=== PATIENT | male | born 2000 | race Two or more races ===

== ENCOUNTER 2021-01-29 17:31 | Emergency (ER) | payer OTHER ==
--- NOTE | 2021-01-29 17:42 | ED Physician Documentation ---
PD HPI MALE - Stated complaint Stated Complaint: MALE - Chief complaint Chief Complaint: General - History obtained from History obtained from: Patient - History of Present Illness Timing - onset: How many days ago Timing - details: Gradual onset, Still present (rectal discomfort. History of recent rectal intercourse with new partner, and is concerned about STI.) Associated symptoms: Other (rectal pain since yesterday). No: Dysuria, Urinary frequency PD HPI MALE CONTRIB FACTORS: Sexually active, Homosexual (he had receptive rectal intercourse yesterday with new partner. Concerned about potential STD exposure. Also having rectal area pain/tenderness.) Similar symptoms before: Has not had sx before Recently seen: Not recently seen Review of Systems Constitutional: denies: Fever, Chills Nose: denies: Rhinorrhea / runny nose, Congestion Throat: denies: Sore throat Respiratory: denies: Cough GI: reports: Other (rectal pain). denies: Abdominal Pain, Nausea, Vomiting : reports: Other (denies rectal bleeding.). denies: Dysuria, Frequency Musculoskeletal: denies: Back pain PD PAST MEDICAL HISTORY - Past Medical History GI: None : None - Present Medications Home Medications: Ambulatory Orders Medication Instructions Recorded Confirmed Doxycycline Monohydrate 150 mg PO BID #14 cap 01/29/21 - Allergies Allergies/Adverse Reactions: Allergies Allergy/AdvReac Type Severity Reaction Status Date / Time No Known Drug Allergies Allergy Verified 01/29/21 17:37 PD ED PE NORMAL - Vitals Vital signs reviewed: Yes - General General: Alert and oriented X 3, No acute distress, Well developed/nourished - Rectal Rectal: Other (there is superficial mucosal tear at anal verge at left side, no bleeding. No hemorrhoids. No noted purulence. ) - Derm Derm: Normal color, Warm and dry - Neuro Neuro: Alert and oriented X 3, No motor deficit, Normal speech Results - Vitals Vitals: Vital Signs - 24 hr 01/29/21 01/29/21 17:36 18:52 Temperature 36.6 C 37.0 C Heart Rate 89 72 Respiratory 16 18 Rate Blood Pressure 114/77 109/77 O2 Saturation 97 99 Oxygen O2 Source Room air PD MEDICAL DECISION MAKING - ED course Complexity details: considered differential (can treat for potential STI exposures. But with some local trauma to the rectal, also can cover for potential proctitis, so opted for Doxy rather than Zithromax, and would be c/w recent IDSA STI recommendations. ), d/w patient Departure - Departure Disposition: 01 Home, Self Care Clinical Impression: Concern about STD in male without diagnosis Record reviewed to determine appropriate education?: Yes Prescriptions: Doxycycline Monohydrate 150 mg PO BID #14 cap Comments: There is a small mucosal abrasion/superficial tear on the left perirectal area. Treat this with cleansing gently and some ointment couple of times a day. It should heal okay. Given the concern for potential STI exposure, you are treated for that with the injection of antibiotic you got here along with the doxycycline twice a day for a week. This should also cover potential proctitis which would be just or rectal infection that develops from the intrinsic germs in the area. Consider a stool softener such as docusate so that you have easy bowel movements over the next several days. Tylenol or ibuprofen as needed for pains. Recheck if not improved completely over the next several days. Consider also following up with primary care or such in about 3 to 4 weeks for recheck testing to ensure no signs of infection have shown at that time. Discharge Date/Time: 01/29/21 19:14
[2021-01-29] MEDS ORDERED: cefTRIAXone 500 MG VIAL IM STA (18:17)
[2021-01-29] MEDS ORDERED: DOXYCYCLINE 100 MG TABLET PO STA (18:17)
[2021-01-29] MEDS ORDERED: LIDOCAINE 1% 2 ML VIAL MC ONE (18:17)
[2021-01-29 18:53] VITALS: BP 109/77
== END 2021-01-29 19:14 | disposition home or self-care (01) ==
LOC: ED 17:31
DX: S30.817A Abrasion of anus, initial encounter (principal); X58.XXXA Exposure to other specified factors, initial encounter; Y93.89 Activity, other specified; Z20.2 Contact with and (suspected) exposure to infections with a predominantly sexual mode of transmission
CPT/HCPCS: 81599; 96372; 99283; A9270; 87491; 87591; 87661

== ENCOUNTER 2021-10-14 08:00 | Outpatient (CLI) | payer OTHER ==
[2021-10-14 22:50] LABS: CHLAMYDIA TRACHOMATIS DNA NEGATIVE (NEGATIVE); NEISSERIA GONORRHOEAE DNA NEGATIVE (NEGATIVE)
[2021-10-15 11:31] LABS: HIV AG/AB 4TH GEN NON-REACTIVE (NON-REACTIVE)
[2021-10-15 12:00] LABS: HEPATITIS C ANTIBODY NON-REACTIVE (NON-REACTIVE)
== END 2021-10-14 23:59 ==
LOC: LAB.N 08:00
PROVIDERS: ATTEND Physician Assistant Medical
DX: R59.0 Localized enlarged lymph nodes (principal)
CPT/HCPCS: 86592; 86803; 87389; 87491; 87591; 87661